=== PATIENT | female | born 1960 | race Caucasian/White ===

== ENCOUNTER 2020-10-27 14:56 | Emergency (ER) | payer MEDICAID ==
[~2020-10-27] VITALS: Ht 160 cm; Wt 105.0 kg
[~2020-10-27 14:56] MED LIST: LEVO50TA8 PO
[2020-10-27 14:57] VITALS: BP 165/83
[2020-10-27] MEDS ORDERED: IBUP-2028 MT (16:11)
[2020-10-27] MEDS ORDERED: TOPUD MT (16:11)
[2020-10-27] MEDS ORDERED: IBUPROFEN 400MG TABLET PO ONE (16:15)
[2020-10-27] MEDS ORDERED: ACETAMINOPHEN 325MG TABLET PO ONE (16:15)
== END 2020-10-27 17:30 | disposition home or self-care (01) ==
LOC: ER 14:56
DX: M54.32 Sciatica, left side (principal); Z90.710 Acquired absence of both cervix and uterus; Z86.39 Personal history of other endocrine, nutritional and metabolic disease
CPT/HCPCS: 99283